=== PATIENT | female | born 1955 | race Caucasian/White ===

== ENCOUNTER 2017-04-01 09:29 | Day surgery (SDC) | payer OTHER ==
--- NOTE | 2017-03-26 11:31 | HP ---
DATE OF ADMISSION: 04/01/2017 Scheduled for surgery, partial mastectomy right breast by Dr. Finley. The patient Jade Bennett is a 61-year-old woman. The patient is . She has 1 child that is i n good health. FAMILY HISTORY: Father and mother both from a stroke. Her mother had also diabetes mellitus. HABITS: The patient does not smoke, does not drink alcohol, no history of drugs. The patient's nas etite lately is not good. She is depressed. Bowel movement is normal. Urination normal. OPERATIONS IN THE PAST: The patient had retinal detachment 3 years ago and it was fixed and she is wearing glasses. MEDICAL PROBLEMS: The patient has bronchial asthma. Once in a while she has an attack and she is u sing Ventolin p.r.n. and Dulera. She had years ago a mammogram and Pap smear that were negative, bu t this time she had a mammogram done and a tumor was found in the right breast. The patient does no t complain of any chest pain. Does not complain of shortness of breath. Once in a while., she has shortness of breath because of the asthma. PHYSICAL EXAMINATION: GENERAL: The patient's weight is 141. She does not look pale. No evidence of shortness of breath right now. Wearing glasses. HEENT: Head is normal. Eyes normal. Conjunctivae normal. Pupils normal reacting to light. Her t ongue is moist. Throat normal. NECK: Symmetrical. Carotid pulse palpable, regular. No JVD. No tumor. Thyroid not enlarged. No lymph node gland enlargement. No jugular venous distention. LUNGS: Sounds clear, no wheezing right now. HEART: Regular. Normal heart sounds. Blood pressure 120/70. ABDOMEN: Soft, no masses. EXTREMITIES: No edema. TESTS DONE: Electrocardiogram shows sinus rhythm at rate of 72. The EKG is within normal limits. Chest x-ray: The heart is not enlarged. The lungs look clear, no evidence of any active disease. The patient has carcinoma of the right breast at 9 o'clock. The diagnosis was infiltrating ductal c arcinoma, moderately differentiated. She had also an MRI of the breast. She had a biopsy done and the MRI shows right central mid depth 3 cm biopsy proven malignant mass with a biopsy marking clip c entrally located. This mass is 3 cm posterior to the right nipple and causes right nipple retractio n and 5.5 cm from the chest wall. No suspicious adenopathy. No finding of contralateral occult lef t breast malignancy. The patient is going to have surgery with Dr. Finley. ASSESSMENT AND PLAN: The patient does not have any chest pain, does not have any shortness of breat h. She has a history of asthma, once in a while she has an attack, that is not bad right now. The heart on auscultation is regular, normal heart sounds. EKG is within normal limits. Chest x-ray co mpletely normal. Lungs are clear. The patient is cleared for surgery with Dr. Finley. DIAGNOSES: 1. Carcinoma of the right breast. 2. History of bronchial asthma. 3. For partial mastectomy by Dr. Finley. The patient is cleared for surgery. Dictated By: ALVARO GERMAIN/RHEA Conf#: [id number] DID#: [id number]
[2017-04-01] VITALS (25 sets, daily range): BP systolic 95–148; BP diastolic 58–81; PULSE 77–103; RESP 11–22; Ht 157.5 cm; Wt 67.2 kg
[~2017-04-01] VITALS: Ht 157.5 cm; Wt 67.2 kg
[2017-04-01] MEDS: D5W-0.45 NACL + KCL 20 MEQ 1,000 ML IV SCH ×2 (10:54→18:13)
[2017-04-01] MEDS ORDERED: morphine 2 MG INJ IV PRN (11:00)
[2017-04-01] MEDS ORDERED: ONDANSETRON 4 MG INJ IV PRN ×2 (11:00→11:30)
[2017-04-01] MEDS ORDERED: CEFAZOLIN 2 GM/50 ML (PMX) 50 ML IVPB SCH (11:00)
[2017-04-01] MEDS ORDERED: LIDOCAINE 2% (SDV) 5 ML INJ ONE (11:23)
[2017-04-01] MEDS ORDERED: FENTAnyl 50 MCG/ML VIAL ONE ×2 (11:23→14:21)
[2017-04-01] MEDS ORDERED: NEOSTIGMINE 3 MG/3 ML SYRINGE ONE (11:23)
[2017-04-01] MEDS ORDERED: MIDAZOLAM 1 MG/ML 2 ML INJ ONE (11:23)
[2017-04-01] MEDS ORDERED: PROPOFOL 20 ML ONE (11:23)
[2017-04-01] MEDS ORDERED: ROCURONIUM 50 MG INJ ONE (11:23)
[2017-04-01] MEDS ORDERED: GLYCOPYRROLATE 0.4 MG INJ ONE (11:23)
[2017-04-01] MEDS ORDERED: HYDROmorphONE (0.2 MG/ML) 10ML SYG IV PRN ×3 (11:30)
[2017-04-01] MEDS ORDERED: morphine (1 MG/ML) 10ML SYRINGE IV PRN ×3 (11:30)
[2017-04-01] MEDS ORDERED: ATROPINE 1 MG/10 ML SYRINGE IV PRN (11:30)
[2017-04-01] MEDS ORDERED: DIPHENHYDRAMINE 50 MG INJ IV PRN (11:30)
[2017-04-01] MEDS ORDERED: EPHEDrine SULFATE 50 MG/5 ML SYG IV PRN (11:30)
[2017-04-01] MEDS ORDERED: MIDAZOLAM 1 MG/ML 2 ML INJ IV PRN (11:30)
[2017-04-01] MEDS ORDERED: OXYCODONE/ACETAMINOPHEN (5/325) TAB PO PRN ×2 (11:30)
[2017-04-01] MEDS ORDERED: MEPERIDINE 25 MG INJ IV PRN (11:30)
[2017-04-01] MEDS ORDERED: hydrALAzine 20 MG INJ IV PRN (11:30)
[2017-04-01] MEDS ORDERED: LABETALOL HCL 20MG INJ IV PRN (11:30)
[2017-04-01] MEDS ORDERED: FENTAnyl 50 MCG/ML VIAL IV PRN ×2 (11:30)
[2017-04-01] MEDS ORDERED: ISOSULFAN BLUE 1% 5 ML INJ SC ONE ×2 (11:45→12:50)
[2017-04-01] MEDS ORDERED: ALBUTEROL/IPRATROPIUM (NEB) 3 ML AMP HHN STA (11:59)
[2017-04-01] MEDS ORDERED: ALBUTEROL 0.5% (NEB) 2.5 MG/0.5 ML AMP ONE (12:01)
[2017-04-01] MEDS ORDERED: HYDROCORTISONE 100 MG INJ ONE (12:17)
[2017-04-01] MEDS ORDERED: LIDOCAINE 4% CR ONE (12:25)
[2017-04-01] MEDS ORDERED: VANCOMYCIN 1 GM (PMX) 250 ML ONE (12:32)
[2017-04-01] MEDS ORDERED: DIPHENHYDRAMINE 50 MG INJ ONE (12:45)
[2017-04-01] MEDS ORDERED: FLUMAZENIL 0.5 MG INJ ONE (14:05)
[2017-04-01] MEDS: SOD CHLORIDE 0.9% 1,000 ML IV SCH (15:57)
[2017-04-01] MEDS ORDERED: ALBUTEROL 0.083% (NEB) 2.5 MG/3 ML AMP HHN PRN (16:00)
[2017-04-01] MEDS: ACETAMINOPHEN 1000MG/100ML IV 100 ML IVPB PRN (17:08)
--- NOTE | 2017-04-01 17:38 | OPR ---
DATE OF OPERATION: 04/01/2017 PREOPERATIVE DIAGNOSIS: Invasive cancer, right breast. POSTOPERATIVE DIAGNOSIS: Invasive cancer, right breast. OPERATION PERFORMED: Right partial mastectomy and axillary dissection utilizing sentinel lymph node technique. ANESTHESIA: General. ANESTHESIOLOGIST: Ab Hampton MD SURGEON: Dhaval Finley MD HISTORIC SITES REGISTRAR: Handy Shin MD INDICATIONS FOR PROCEDURE: The patient is a 61-year-old female who presented with an enlarging righ t breast mass. Workup including biopsy revealed an invasive cancer. The patient was counseled as t o need for surgery. The patient refused mastectomy initially and wished to pursue breast conservatio n surgery. She was informed that there was a chance she would require completion mastectomy based o n the size of the tumor. She consented and was scheduled for surgery. DESCRIPTION OF PROCEDURE: The patient was brought to the operating theater, placed under general en dotracheal tube anesthesia. The right breast and axillary region were prepped and draped in the usu al sterile fashion. Approximately 4 mL of 1% Lymphazurin blue dye were then injected peritumorally and the breast was gently massaged for approximately 12 minutes. At this point, a 3 to 4 cm incisio n was made in the right axillary hairline. Subcutaneous tissue was dissected with cautery down to t he clavipectoral fascia. A dye-stained lymphatic was identified and found to be traced to a somewha t enlarged lymph node. This lymph node and other lymph nodes were then resected. This was accomplis hed by using blunt dissection along the chest wall to keep the long thoracic nerves out of harm's wa y. More superiorly, the axillary vein thoracodorsal neurovascular bundle were identified and kept o ut of harm's way. Node bearing tissue between the 2 nerves was then meticulously harvested using Li gaSPinstant Karma device. Specimen was then sent for intraoperative analysis, which was performed by attending pathologist, Dr. Taylor . He stated the sentinel node did not show definite evidence of metast atic disease, therefore, no further nodes were taken. The wound was irrigated. Minimal bleeding wa s controlled with cautery. A #10 Pashto Dada-Cameron drain was then brought through the right mid axillary line, cut to size and laid within the axilla. It was secured in place with a 2-0 nylon sut ure in a standard fashion. The skin was then reapproximated with 4-0 Vicryl suture in subcuticular fashion. Attention was then directed to performing the partial mastectomy. The mass was located at the 9 o'clock position was palpable. A curvilinear incision was made directly over the mass. Subc utaneous tissue was dissected with cautery. Skin edges were elevated with skin hooks and wide circu mferential dissection of the tissue associated with the mass then took place with cautery, taking gr eat care to ensure adequate margin. Specimen was elevated, transected, oriented, and sent for permguevara nejuan antonio pathologic analysis. The wound was irrigated. Minimal bleeding was controlled with cautery. The skin was then reapproximated with 4-0 Vicryl in subcuticular fashion and Dermabond was then appl ied to both wounds. The patient tolerated procedure well. ESTIMATED BLOOD LOSS: 30 mL. COMPLICATIONS: There were no complications. DISPOSITION: The patient was transported in stable condition to the recovery room where circumferen tial compression dressing was applied. Dictated By: DHAVAL REYNOSO/RHEA Conf#: [id number] DID#: [id number]
[2017-04-02 00:10] VITALS: BP 103/62; RESP 19
[2017-04-02] MEDS: SOD CHLORIDE 0.9% 1,000 ML IV SCH ×2 (00:20→07:00)
[2017-04-02] MEDS: ACETAMINOPHEN 1000MG/100ML IV 100 ML IVPB PRN ×2 (01:09→06:07)
[2017-04-02] MEDS: D5W-0.45 NACL + KCL 20 MEQ 1,000 ML IV SCH ×2 (02:54→10:15)
[2017-04-02 04:00] VITALS: BP 102/68; PULSE 75; RESP 16
[2017-04-02 06:01] LABS: CALCIUM 8.2 mg/dl (8.4-10.2); CREATININE 0.61 mg/dl (0.44-1.00); PHOSPHORUS 3.3 mg/dl (2.5-4.9); POTASSIUM 3.4 mmol/L (3.5-5.1)
[2017-04-02 06:01] LABS: ADD SCAN DIFF NO
[2017-04-02 06:07] LABS: BASOPHIL # 0.1 10^3/ul (0.0-0.1); BASOPHILS % 0.6 % (0.0-2.0); EOSINOPHILS # 0.3 10^3/ul (0.0-0.5); EOSINOPHILS % 3.4 % (0.0-7.0); HEMATOCRIT 36.6 % (37.0-47.0); HEMOGLOBIN 11.9 g/dl (12.0-16.0); LYMPHOCYTES # 1.6 10^3/ul (0.8-2.9); LYMPHOCYTES % 19.6 % (15.0-51.0); MEAN CORPUSCULAR HEMOGLOBIN 30.4 pg (29.0-33.0); MEAN CORPUSCULAR HGB CONC 32.5 g/dl (32.0-37.0); MEAN CORPUSCULAR VOLUME 93.6 fl (82.0-101.0); MEAN PLATELET VOLUME 10.5 fl (7.4-10.4); MONOCYTE # 0.8 10^3/ul (0.3-0.9); MONOCYTES % 9.8 % (0.0-11.0); NEUTROPHIL # 5.5 10^3/ul (1.6-7.5); NEUTROPHILS % 66.4 % (39.0-77.0); PLATELET COUNT 233 10^3/UL (140-415); RED BLOOD COUNT 3.91 10^6/ul (4.20-5.40); RED CELL DISTRIBUTION WIDTH 12.9 % (11.5-14.5); WHITE BLOOD COUNT 8.4 10^3/ul (4.8-10.8)
[2017-04-02 07:54] VITALS: BP 108/68; RESP 16
[2017-04-02] MEDS ORDERED: POTASSIUM CHLORIDE (SR) 20 MEQ TAB PO STA (12:02)
--- NOTE | 2017-04-02 12:29 | PN ---
Date/Time of Note Date/Time of Note DATE: 04/02/17 TIME: 12:05 Assessment/Plan VTE Prophylaxis VTE Prophylaxis Intervention: SCD's Lines/Catheters IV Catheter Type (from Nrsg): Peripheral IV Urinary Cath still in place: No Assessment/Plan Assessment/Plan 61 yo female 1. S/p partial right mastectomy, POD#1 D/c plan today after cleared by Dr Shin Follow up with Dr Finley outpatient Patient only agrees to Tylenol for pain control 2. Bronchial Asthma: stable 3. Hypokalemia: Kcl 40 mEq x1 Prophylaxis: Tolerating po, SCDs Disposition: D/c home today if OK with Dr Shin Subjective 24 Hr Interval Summary Free Text/Dictation Patient doing OK and declining narcotics D/c plan today if OK with Dr Shin Exam/Review of Systems Vital Signs Vitals Vital Signs Date Time Temp Pulse Resp B/P Pulse Ox O2 Delivery O2 Flow Rate FiO2 04/02/17 07:54 98.0 75 16 108/68 96 04/02/17 04:00 Room Air 04/01/17 14:27 2.0 04/01/17 12:12 21 Intake and Output 04/01/17 04/01/17 04/02/17 15:00 23:00 07:00 Intake Total 1000 ml 245 ml 1247 ml Output Total 200 ml 830 ml 1320 ml Balance 800 ml -585 ml -73 ml Exam Constitutional: alert, oriented, well developed Respiratory: clear to auscultation, normal air movement, other (s/p partial right mastectomy ) Cardiovascular: nl pulses, regular rate and rhythm Gastrointestinal: non-tender, soft Musculoskeletal: nl extremities to inspection Extremities: normal pulses, other (no edema, clubbing or cyanosis ) Neurological: DIRECTOR E LEARNING II-XII intact, nl mental status, nl speech, nl strength Results Result Diagram: 04/02/17 04204/02/17 0429 Results 24 hrs Laboratory Tests Test 04/02/17 04:20 04/02/17 04:29 White Blood Count 8.4 Red Blood Count 3.91 L Hemoglobin 11.9 L Hematocrit 36.6 L Mean Corpuscular Volume 93.6 Mean Corpuscular Hemoglobin 30.4 Mean Corpuscular Hemoglobin Concent 32.5 Red Cell Distribution Width 12.9 Platelet Count 233 Mean Platelet Volume 10.5 H Neutrophils % 66.4 Lymphocytes % 19.6 Monocytes % 9.8 Eosinophils % 3.4 Basophils % 0.6 Nucleated Red Blood Cells % 0.0 Neutrophils # 5.5 Lymphocytes # 1.6 Monocytes # 0.8 Eosinophils # 0.3 Basophils # 0.1 Nucleated Red Blood Cells # 0.0 Sodium Level 137 Potassium Level 3.4 L Chloride Level 107 Carbon Dioxide Level 27 Anion Gap 6 L Blood Urea Nitrogen 5 L Creatinine 0.61 Glucose Level 108 Calcium Level 8.2 L Phosphorus Level 3.3 Magnesium Level 2.0 Medications Medications Current Medications Sodium Chloride (NS) 1,000 ml @ 75 mls/hr [id number] IV Last administered on 04/02 07:00; Admin Dose 75 MLS/HR; Start 04/01/17 at 11:00 Ondansetron HCl 4 mg 4 mg Q6H PRN IV NAUSEA AND/OR VOMITING; Start 04/01/17 at 11:00 Potassium Chloride/Dextrose/ Sod Cl (D5-1/2ns + KCl 20 Meq) 1,000 ml @ 125 mls/ hr Q8H IV ; Start 04/01/17 at 10:54 Morphine Sulfate 2 mg 2 mg Q1H PRN IV PAIN; Start 04/01/17 at 11:00 Acetaminophen (Ofirmev 1000mg/ 100ml Iv) 100 ml @ 400 mls/hr Q6H PRN IVPB PAIN Last administered on 04/02/17 06:07; Admin Dose 400 MLS/HR; Start at 11:00 GERONIMO BAER April 02, 2017 12:18
[2017-04-02] MEDS ORDERED: ACETAMINOPHEN 325 MG TAB PO PRN (12:30)
[2017-04-02] MEDS ORDERED: traMADol 50 MG TAB PO PRN (12:30)
--- NOTE | 2017-04-02 12:31 | PDOCDIS ---
Discharge Instructions CONDITION Patient Condition: Stable HOME CARE INSTRUCTIONS: Diet Instructions: RegularSpecial Diet: REGULAR ACTIVITY: Activity Restrictions: Slowly Increase Activity Rest between Activity Avoid heavy lifting Do not Drive Avoid Heavy Housework Bathing Restrictions: Shower FOLLOW UP/APPOINTMENTS Appointments Follow up with PCP within 1 week Follow up with Dr Finley in 1 to2 weeks GERONIMO BAER April 02, 2017 12:31
--- NOTE | 2017-04-02 19:56 | PN ---
DATE: 04/02/2017 SUBJECTIVE: Postop day #1 procedure status post right partial mastectomy with axillary dissection u tilizing sentinel lymph node technique. The patient feels okay. No complaint. Has been out of bed , walked around. Has tolerated diet. Minimal pain. OBJECTIVE: VITAL SIGNS: Temperature 98, pulse rate 75, respirations 16, blood pressure 108/68, saturation 96% on room air. LABORATORY DATA: WBC 8400, hemoglobin 11.9, hematocrit 36.6. Differential 66% neutrophils. Chemis try: Sodium 137, potassium 3.4, BUN 5, creatinine 0.61. CHEST: Dressing is intact. It is not too tight. The patient can move her right upper extremity fu lly. ASSESSMENT AND PLAN: A 61-year-old status post a right partial mastectomy with axillary dissection for cancer of the right breast. The patient is doing fine. Instructions were given to the patient for how to take care of the Dada-Cameron drain, how to empty it and how to empty it and how to lakes[place] ure it and write it down and call Dr. Finley' office tomorrow and make an appointment for followup. The patient understood and she is going also to use pain medication, Tylenol 500 mg q.4 hours p.r.n. and also Advil 200 mg p.o. q.4h. p.r.n. That is the regimen the patient prefers. Dictated By: SALLIE RATLIFF MD PS/NTS Conf#: [id number] DID#: [id number]
== END 2017-04-02 18:55 | disposition home or self-care (01) ==
LOC: SDS 09:29 → MS1 15:50 → SDS 04-02 18:55
PROVIDERS: ATTEND Surgery Surgical Oncology
DX: C50.911 Malignant neoplasm of unspecified site of right female breast (principal)
CPT/HCPCS: 19301; 38500; 38792; 80048; 83735; 84100; 85025; 88307; 88331; 94664; J0131; J1200; J1720; J2175; J2250; J2405; J2710; J3010; J3370; J7030; Z7512; Z7610; Q9968